=== PATIENT | female | born 2000 | race Caucasian/White ===

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

== ENCOUNTER 2022-05-21 10:27 | Emergency (ER) | payer OTHER ==
[2022-05-21 11:05] VITALS: TEMP 98.2
--- NOTE | 2022-05-21 11:40 | ED ---
Abdominal Pain HPI - General Chief Complaint: Abdominal Pain Stated Complaint: Urgent care sent, ABD pain Time Seen by Provider: 05/21/22 11:18 Source: patient, RN notes reviewed Mode of arrival: ambulatory Limitations: no limitations - History of Present Illness Initial Comments: This a 22-year-old female presented emergency Department chief complaint lower abdominal pain. Patient states started over the last couple days. Patient seen in urgent care sent here for further evaluation. Patient states she has no chance denies any vaginal bleeding or vaginal discharge. She has no dysuria she complains of bilateral lower abdominal pain but worse in the left side. She is sent here to rule out ovarian issue. Patient denies any back pain upper abdominal pain, flank pain. Patient offers no complaints. - Related Data Home Medications Medication Instructions Recorded Confirmed Ibuprofen [Motrin] 600 mg PO Q8HR PRN 05/21/22 05/21/22 Allergies Allergy/AdvReac Type Severity Reaction Status Date / Time No Known Allergies Allergy Verified 05/21/22 13:44 Review of Systems ROS Statement: Those systems with pertinent positive or pertinent negative responses have been documented in the HPI. ROS Other: All systems not noted in ROS Statement are negative. Past Medical History Past Medical History: No Reported History History of Any Multi-Drug Resistant Organisms: None Reported Past Surgical History: No Surgical Hx Reported Past Psychological History: Anxiety, Bipolar, Depression Past Alcohol Use History: None Reported Past Drug Use History: None Reported General Exam Limitations: no limitations General appearance: alert, in no apparent distress Head exam: Present: atraumatic, normocephalic, normal inspection Eye exam: Present: normal appearance, PERRL, EOMI. Absent: scleral icterus, conjunctival injection, periorbital swelling ENT exam: Present: normal exam, normal oropharynx, mucous membranes moist Neck exam: Present: normal inspection, full ROM. Absent: tenderness, meningismus, lymphadenopathy Respiratory exam: Present: normal lung sounds bilaterally. Absent: respiratory distress, wheezes, rales, rhonchi, stridor Cardiovascular Exam: Present: regular rate, normal rhythm, normal heart sounds. Absent: systolic murmur, diastolic murmur, rubs, gallop, clicks GI/Abdominal exam: Present: soft, tenderness (Mild lower abdominal tenderness), normal bowel sounds. Absent: distended, guarding, rebound, rigid Back exam: Absent: CVA tenderness (R), CVA tenderness (L) Neurological exam: Present: alert Course Vital Signs 05/21/22 05/21/22 11:00 13:27 Temperature 98.2 F Pulse Rate 64 52 L Respiratory 20 18 Rate Blood Pressure 120/83 114/69 O2 Sat by Pulse 99 100 Oximetry Medical Decision Making - Medical Decision Making 22-year-old female presents from for abdominal pain pelvic pain. Patient then related to more likely menstruation. Ultrasound, urinalysis unremarkable. Patient discharged in stable condition return parameters discussed. - Lab Data Lab Results 05/21/22 05/21/22 Range/Units 13:17 13:17 Urine Color Light Yellow Urine Appearance Cloudy H (Clear) Urine pH 7.0 (5.0-8.0) Ur Specific [place] 1.015 (1.001-1.035) Urine Protein Negative (Negative) Urine Glucose (UA) Negative (Negative) Urine Ketones Negative (Negative) Urine Blood Negative (Negative) Urine Nitrite Negative (Negative) Urine Bilirubin Negative (Negative) Urine Urobilinogen <2.0 (<2.0) mg/dL Ur Leukocyte Esterase Negative (Negative) Urine WBC 1 (0-5) /hpf Ur Squamous Epith Cells 15 H (0-4) /hpf Amorphous Sediment Occasional H (None) /hpf Urine Bacteria Rare H (None) /hpf Urine Mucus Rare H (None) /hpf Urine HCG, Qual Not Detected (Not Detectd) Disposition Clinical Impression: Pelvic pain Disposition: HOME SELF-CARE Condition: Stable Instructions (If sedation given, give patient instructions): Pelvic Pain (ED) Additional Instructions: Please return to the Emergency Department if symptoms worsen or any other concerns. Is patient prescribed a controlled substance at d/c from ED?: No [facility] - [facility]2 days Time of Disposition: 14:01
--- NOTE | 2022-05-21 12:04 | US ---
EXAMINATION TYPE: US transvaginal DATE OF EXAM: 05/21/2022 COMPARISON: NONE CLINICAL HISTORY: pain. pelvic pain, worse on the left TECHNIQUE: Transvaginal (TV) Date of LMP: 05/06/22 EXAM MEASUREMENTS: Uterus: 7.0 x 3.5 x 4.5 cm Endometrial Stripe: 0.6 cm Right Ovary: 3.0 x 1.5 x 1.6 cm Left Ovary: 2.2 x 1.7 x 1.8 cm 1. Uterus: Anteverted fluid within cervical canal likely relating to menstruation. 2. Endometrium: appears wnl 3. Right Ovary: follicles noted 4. Left Ovary: follicles noted Spectral, color and waveform doppler imaging shows good arterial and venous flow within the ovaries ; there is no evidence for ovarian torsion. 5. Bilateral Adnexa: appears wnl 6. Posterior cul-de-sac: free fluid IMPRESSION: No evidence for acute process. Appropriate color Doppler flow with spectral waveforms to the ovaries.
[2022-05-21 13:29] VITALS: RESP 18
[2022-05-21 13:42] LABS: Amorphous Sediment,Urine Occasional /hpf; Appearance,Urine Cloudy (Clear); Bacteria,Urine Rare /hpf; Bilirubin,Urine Negative (Negative); Blood,Urine Negative (Negative); Color,Urine Light Yellow; Glucose,Urine (UA) Negative (Negative); Ketones,Urine Negative (Negative); Leukocyte Esterase,Urine Negative (Negative); Mucus,Urine Rare /hpf; Nitrite,Urine Negative (Negative); Protein,Urine Negative (Negative); Specific Gravity,Urine 1.015 (1.001-1.035); Squamous Epithelial Cell,Urine 15 /hpf (0-4); Urobilinogen,Urine <2.0 mg/dL (<2.0); WBC,Urine 1 /hpf (0-5)
[2022-05-21 14:14] VITALS: BP 116/71; PULSE 51
[2022-05-22 15:24] LABS: C. trachomatis,PCR Negative (Neg,Equiv); Chlamydia trachomatis Source Urine
[2022-05-22 15:25] LABS: N. gonorrhoeae,PCR Negative (Neg,Equiv); Neisseria Source Urine
== END 2022-05-21 14:14 | disposition home or self-care (01) ==
LOC: EC 10:27
DX: R10.2 Pelvic and perineal pain (principal)
CPT/HCPCS: 76830; 81001; 81025; 87491; 87591; 93975; 99284

== ENCOUNTER → 2022-11-21 | Outpatient (CLI) | payer OTHER ==
--- NOTE | 2022-11-22 14:10 | MR ---
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 The patient was then given intravenous contrast and multi planar, T1 fat-saturation images wer e obtained. IV Contrast: 7.5 cc Gadavist FINDINGS: Cerebellar tonsils extend below the foramen magnum approximately 2 mm. The lainez-white junctions, vent ricular system, basal cisterns appear unremarkable. Diffusion-weighted imaging shows no evidence of r estricted diffusion to suggest acute/subacute infarct. Intracranial arterial flow voids are maintaine d. Midline structures show no abnormality. The susceptibility weighted images do not reveal any evide nce for micro-hemorrhage. After administration of gadolinium, no abnormal enhancement is seen. The bone marrow signal is within normal limits. Paranasal sinuses and mastoid air cells: Clear Visualized orbits: Orbital contents are intact. IMPRESSION: 1. No evidence of intracranial mass, acute/subacute infarct, or abnormal enhancement. 2. Minimal cerebellar tonsillar ectopia.
== END | disposition home or self-care (01) ==
LOC: RADMRIMAIN 19:45
PROVIDERS: ATTEND Nurse Practitioner Family
DX: Q04.8 Other specified congenital malformations of brain (principal); R41.3 Other amnesia
CPT/HCPCS: 70553; A9585

== ENCOUNTER 2023-01-21 08:30 | Day surgery (SDC) | payer OTHER ==
[2023-01-18 08:30] VITALS: BMI 29.0
[~2023-01-21 08:30] MED LIST: SODIUM CHLORIDE 0.9% 1,000 ML IV SCH
[2023-01-21 08:44] VITALS: BP 130/68; PULSE 71; RESP 18; TEMP 98.2
--- NOTE | 2023-01-29 18:35 | P.EPPROC ---
- EP Procedure Note Electrophysiology Procedure Note: Diagnosis Recurrent presyncope Twelve-lead EKG in the supine position shows sinus mechanism normal MO narrow QRS normal ST segments normal QT interval heart rate 54 beats a minute a Tilt table test for protocol Baseline blood pressure 111/59 mmHg, Baseline heart rate 50 beats a minute Patient was tilted upright at an angle of 70 per protocol No significant change in heart rate or blood pressure She was laid supine at the end of the procedure She had a variety of symptoms including feeling sick with this was not accompanied by any heart rate or blood pressure changes No evidence for neurocardiogenic syncope
== END 2023-01-21 11:07 | disposition home or self-care (01) ==
LOC: CATHEP 08:30
PROVIDERS: ATTEND Internal Medicine Clinical Cardiac Electrophysiology
DX: R55 Syncope and collapse (principal)
CPT/HCPCS: 81025; 93660

== ENCOUNTER 2023-10-31 15:18 | Emergency (ER) | payer OTHER ==
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
[2023-10-31 15:49] VITALS: BP 102/67; PULSE 63; RESP 18; TEMP 98.7
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
== END 2023-10-31 16:25 | disposition home or self-care (01) ==
LOC: EC 15:18
DX: S93.402A Sprain of unspecified ligament of left ankle, initial encounter (principal); Z88.8 Allergy status to other drugs, medicaments and biological substances; Z86.59 Personal history of other mental and behavioral disorders; V89.2XXA Person injured in unspecified motor-vehicle accident, traffic, initial encounter; Y92.411 Interstate highway as the place of occurrence of the external cause
CPT/HCPCS: 99284